=== PATIENT | male | born 1955 | race African-American/Black ===

== ENCOUNTER 2017-01-14 20:47 | Emergency (ER) | payer OTHER ==
[~2017-01-14] VITALS: Ht 167.6 cm; Wt 60.0 kg
[~2017-01-14 20:47] MED LIST: CRUTMIS3; DOCU1CAP39 PO; HYDR-3366 PO; WALKER WHEELS/F1 MIS
[2017-01-14 21:06] VITALS: BP 120/73; PULSE 63; RESP 18; TEMP 98.1; O2SAT 95
[2017-01-14] MEDS ORDERED: LIDOCAINE HCL 1% 50 ML VIAL INFIL ONE (21:30)
[2017-01-14] MEDS ORDERED: TETANUS/DIPHTHERIA TOXOID ADULT 0.5 ML VIAL IM ONE (21:30)
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
[2017-01-14 23:10] LABS: AUTOMATED NEUTROPHIL # 4.5 TH/MM3 (1.8-7.7); BASOPHIL # 0.2 TH/MM3 (0-0.2); BASOPHIL % 2.7 % (0.0-2.0); EOSINOPHIL # 0.2 TH/MM3 (0-0.4); HEMATOCRIT 44.5 % (39.0-51.0); HEMO FLAGS DIFF FINAL; LYMPH % 30.4 % (9.0-44.0); LYMPHOCYTE # 2.5 TH/MM3 (1.0-4.8); MEAN CORPUSCULAR HEMOGLOBIN 32.1 PG (27.0-34.0); MEAN CORPUSCULAR HGB CONC 34.9 % (32.0-36.0); MONO % 10.4 % (0.0-8.0); NEUT % 53.5 % (16.0-70.0); PLATELET COUNT 291 TH/MM3 (150-450); RED BLOOD COUNT 4.84 MIL/MM3 (4.50-5.90); RED CELL DISTRIBUTION WIDTH 13.8 % (11.6-17.2); WHITE BLOOD COUNT 8.4 TH/MM3 (4.0-11.0)
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
[2017-01-14 23:19] LABS: AMPHETAMINE, URINE NEG (NEG); BARBITURATES, URINE NEG (NEG); COCAINE, URINE NEG (NEG)
[2017-01-14 23:25] LABS: ANION GAP 7 MEQ/L (5-15)
[2017-01-14 23:36] LABS: ALKALINE PHOSPHATASE 93 U/L (45-117); ALT (GPT) 66 U/L (12-78); AST (GOT) 112 U/L (15-37); BICARBONATE 23.7 MEQ/L (21.0-32.0); BLOOD UREA NITROGEN 7 MG/DL (7-18); CHLORIDE 110 MEQ/L (98-107); GLOMERULAR FILTRATION RATE 106 ML/MIN (>89); POTASSIUM 4.3 MEQ/L (3.5-5.1); SODIUM (NA) 141 MEQ/L (136-145); TOTAL BILIRUBIN ADULT 0.3 MG/DL (0.2-1.0)
[2017-01-14] MEDS ORDERED: NICOTINE 21 MG/24 HR PATCH TD ONE (23:45)
[2017-01-15] MEDS ORDERED: ACETAMINOPHEN 325 MG TAB PO ONE
[2017-01-15 01:00] VITALS: BP 118/63; PULSE 85; RESP 18; O2SAT 95
[2017-01-15 02:15] VITALS: BP 116/55; PULSE 91; RESP 18; O2SAT 96
[2017-01-15 06:19] VITALS: BP 105/65; PULSE 65; RESP 20; O2SAT 97
[2017-01-15 11:41] VITALS: BP 121/72; PULSE 84; RESP 18; O2SAT 96
[2017-01-15 12:42] VITALS: BP 121/72; PULSE 84; RESP 18; O2SAT 96
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
== END 2017-01-15 14:40 | disposition home or self-care (01) ==
LOC: NEPA 20:47 → MERGE 20:47 → NEPJ 01-15 14:40
DX: S01.81XA Laceration without foreign body of other part of head, initial encounter (principal); Y04.8XXA Assault by other bodily force, initial encounter; R45.851 Suicidal ideations; J44.9 Chronic obstructive pulmonary disease, unspecified; F10.94 Alcohol use, unspecified with alcohol-induced mood disorder; Y90.8 Blood alcohol level of 240 mg/100 ml or more
CPT/HCPCS: 12013; 70450; 72125; 80053; 80307; 80320; 84443; 85025

== ENCOUNTER 2018-01-17 00:03 | Emergency (ER) | payer OTHER ==
[~2018-01-17] VITALS: Ht 167.6 cm; Wt 65.0 kg
[~2018-01-17 00:03] MED LIST changes: -DOCU1CAP39 PO
[2018-01-17 01:10] VITALS: BP 117/77; PULSE 67; RESP 18; TEMP 98.4; O2SAT 98
[2018-01-17] MEDS ORDERED: SODIUM CHLORIDE 0.9% FLUSH 10 ML FLUSH IVF PRN (01:15)
[2018-01-17 01:18] VITALS: RESP 18; O2SAT 97
[2018-01-17 02:05] LABS: AUTOMATED NEUTROPHIL # 4.6 TH/MM3 (1.8-7.7); BASOPHIL # 0.1 TH/MM3 (0-0.2); BASOPHIL % 1.6 % (0.0-2.0); EOSINOPHIL # 0.2 TH/MM3 (0-0.4); EOSINOPHIL % 2.6 % (0.0-4.0); HEMATOCRIT 42.4 % (39.0-51.0); HEMOGLOBIN 14.9 GM/DL (13.0-17.0); LYMPH % 24.4 % (9.0-44.0); LYMPHOCYTE # 1.9 TH/MM3 (1.0-4.8); MEAN CELL VOLUME 95.8 FL (80.0-100.0); MEAN CORPUSCULAR HEMOGLOBIN 33.6 PG (27.0-34.0); MEAN CORPUSCULAR HGB CONC 35.1 % (32.0-36.0); MONO % 11.2 % (0.0-8.0); MONOCYTE # 0.9 TH/MM3 (0-0.9); NEUT % 60.2 % (16.0-70.0); PLATELET COUNT 191 TH/MM3 (150-450); RED BLOOD COUNT 4.42 MIL/MM3 (4.50-5.90); RED CELL DISTRIBUTION WIDTH 13.4 % (11.6-17.2); WHITE BLOOD COUNT 7.6 TH/MM3 (4.0-11.0)
[2018-01-17 02:14] LABS: PROTHROMBIN TIME - PATIENT 10.3 SEC (9.8-11.6)
[2018-01-17] MEDS ORDERED: IOHEXOL 350 MG/ML 10 ML VIAL (for RAD DIAG) IVCONTRAST ONE (03:07)
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
[2018-01-17 04:00] VITALS: BP 127/71; PULSE 76; RESP 18; O2SAT 99
[2018-01-17 06:30] VITALS: BP 118/78; PULSE 64; RESP 18; O2SAT 100
[2018-01-17] MEDS ORDERED: KETOROLAC TROMETHAMINE 30 MG/ML (IVP) VIAL IV PUSH ONE (06:30)
[2018-01-17] MEDS ORDERED: TETANUS/DIPHTHERIA TOXOID ADULT 0.5 ML VIAL IM ONE (06:30)
[2018-01-17] MEDS ORDERED: NORC5TAB PO (06:47)
[2018-01-17] MEDS ORDERED: IBUP-232 PO (06:47)
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
== END 2018-01-17 07:03 | disposition home or self-care (01) ==
LOC: NEPC 00:03
DX: S09.90XA Unspecified injury of head, initial encounter (principal); S60.222A Contusion of left hand, initial encounter; J44.9 Chronic obstructive pulmonary disease, unspecified; J32.0 Chronic maxillary sinusitis; K76.0 Fatty (change of) liver, not elsewhere classified; J43.9 Emphysema, unspecified; Y04.2XXA Assault by strike against or bumped into by another person, initial encounter; Z23 Encounter for immunization; Z72.0 Tobacco use
CPT/HCPCS: 70450; 70486; 71260; 72125; 73120; 74177; 80048; 85025; 85610; 85730; 86850; 86900; 86901; 90471; 90714; 96374; 99285; J1885; Q9967

== ENCOUNTER 2018-04-19 10:23 | Emergency (ER) | payer OTHER ==
[~2018-04-19] VITALS: Ht 170.2 cm; Wt 63.0 kg
[~2018-04-19 10:23] MED LIST changes: -CRUTMIS3; -HYDR-3366 PO; +IBUP-232 PO; +NORC5TAB PO; -WALKER WHEELS/F1 MIS
[2018-04-19 10:28] VITALS: BP 111/61; PULSE 74; RESP 16; TEMP 97.5; O2SAT 94
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
[2018-04-19 11:04] LABS: AUTOMATED NEUTROPHIL # 2.7 TH/MM3 (1.8-7.7); BASOPHIL # 0.2 TH/MM3 (0-0.2); BASOPHIL % 2.7 % (0.0-2.0); EOSINOPHIL # 0.2 TH/MM3 (0-0.4); EOSINOPHIL % 2.8 % (0.0-4.0); HEMOGLOBIN 12.1 GM/DL (13.0-17.0); LYMPH % 33.8 % (9.0-44.0); LYMPHOCYTE # 2.1 TH/MM3 (1.0-4.8); MEAN CELL VOLUME 78.3 FL (80.0-100.0); MEAN CORPUSCULAR HEMOGLOBIN 24.9 PG (27.0-34.0); MEAN CORPUSCULAR HGB CONC 31.8 % (32.0-36.0); MEAN PLATELET VOLUME 7.7 FL (7.0-11.0); MONO % 16.8 % (0.0-8.0); NEUT % 43.9 % (16.0-70.0); PLATELET COUNT 295 TH/MM3 (150-450); RED BLOOD COUNT 4.86 MIL/MM3 (4.50-5.90); WHITE BLOOD COUNT 6.2 TH/MM3 (4.0-11.0)
[2018-04-19 11:24] LABS: ALBUMIN 3.7 GM/DL (3.4-5.0); AST (GOT) 294 U/L (15-37); BICARBONATE 21.8 MEQ/L (21.0-32.0); BLOOD UREA NITROGEN 15 MG/DL (7-18); CALCIUM 8.1 MG/DL (8.5-10.1); CHLORIDE 109 MEQ/L (98-107); CREATININE 0.92 MG/DL (0.60-1.30); GLOMERULAR FILTRATION RATE 84 ML/MIN (>89); GLUCOSE,RANDOM 77 MG/DL (74-106); SODIUM (NA) 141 MEQ/L (136-145)
[2018-04-19 11:35] LABS: ALKALINE PHOSPHATASE 90 U/L (45-117); ALT (GPT) 211 U/L (12-78); TOTAL BILIRUBIN ADULT 0.4 MG/DL (0.2-1.0); TOTAL PROTEIN 7.9 GM/DL (6.4-8.2)
[2018-04-19] MEDS ORDERED: LORazepam 2 MG/ML VIAL IM ONE (11:45)
[2018-04-19] MEDS ORDERED: EXCETAB31 (12:08)
[2018-04-19] MEDS ORDERED: ACET1PAC (12:08)
[2018-04-19] MEDS ORDERED: ASPI81CH7 CHEW (12:08)
[2018-04-19 12:20] VITALS: BP 113/80; PULSE 75; RESP 18; O2SAT 96
[2018-04-19 13:48] LABS: BACTERIA, URINE OCC /hpf; BILIRUBIN, URINE NEG (NEG); BLOOD, URINE NEG (NEG); GLUCOSE,URINE NEG (NEG); KETONE, URINE NEG (NEG); MUCUS URINE FEW /lpf (OCC); NITRITE,URINE NEG (NEG); URINE COLOR LIGHT-YELLOW (YELLW/STRAW); URINE LEUKOCYTE ESTERASE MOD (NEG)
[2018-04-19] MEDS ORDERED: BACT800T5 PO (14:32)
[2018-04-19] MEDS ORDERED: SULFAMETHOXAZOLE-TRIMETHOPRIM DS 800-160 MG TAB PO ONE (14:45)
[2018-04-19 15:11] VITALS: BP 103/60; PULSE 73; RESP 18; O2SAT 93
[2018-04-19 18:32] VITALS: BP 143/62; PULSE 82; RESP 12; TEMP 98; O2SAT 95
[2018-04-19] MEDS ORDERED: LORazepam 2 MG TAB PO PRN (19:30)
[2018-04-19] MEDS ORDERED: FLUMAZENIL 0.5 MG/5 ML VIAL IV PUSH PRN (19:30)
[2018-04-19] MEDS ORDERED: LORazepam 1 MG TAB PO PRN (19:30)
[2018-04-19] MEDS ORDERED: LORazepam 2 MG/ML VIAL IV PUSH PRN ×4 (19:30)
[2018-04-19 20:57] VITALS: BP 122/69; PULSE 114; RESP 22; O2SAT 94
[2018-04-19 22:37] VITALS: BP 128/67; PULSE 98; RESP 18; TEMP 99.2; O2SAT 93
[2018-04-20 02:06] VITALS: BP 131/81; PULSE 83; RESP 20; TEMP 98.2; O2SAT 96
[2018-04-20 06:37] VITALS: BP 125/61; PULSE 74; RESP 22; TEMP 97.9; O2SAT 95
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
== END 2018-04-20 12:47 | disposition home or self-care (01) ==
LOC: NEDAMB 10:23 → NEPJ 04-20 12:47
DX: F10.220 Alcohol dependence with intoxication, uncomplicated (principal); F17.290 Nicotine dependence, other tobacco product, uncomplicated; F31.9 Bipolar disorder, unspecified; Y90.8 Blood alcohol level of 240 mg/100 ml or more; Z59.0 Homelessness
CPT/HCPCS: 80053; 80307; 81001; 84443; 85025; 96372; 99284; J2060